=== PATIENT | female | born 1980 | race Caucasian/White ===

== ENCOUNTER → 2018-01-29 | Outpatient (CLI) | payer OTHER ==
[~2018-01-29] MED LIST: CHOL500050 PO; CITA20TA9 PO; GABA100C PO; HYDR-3241 PO; HYDR-3653 PO; MELO7.5T31 PO; SERT50TA5 PO
[2018-01-29 13:53] LABS: BASOPHILS # (AUTO) 0.06 x10^3/uL (0-0.1); BASOPHILS % (AUTO) 1 % (0-1); EOSINOPHILS # (AUTO) 0.07 x10^3/uL (0-0.4); EOSINOPHILS % (AUTO) 1 % (1-7); LYMPHOCYTES # (AUTO) 1.65 x10^3/uL (1-3.4); LYMPHOCYTES % (AUTO) 25 % (22-44); MD NO; MEAN CORPUSCULAR HEMOGLOBIN 29.2 pg (27.0-34.8); MEAN CORPUSCULAR VOLUME 88.5 fL (80-100); MEAN PLATELET VOLUME 9.6 fL (7.4-10.4); MONOCYTES # (AUTO) 0.69 x10^3/uL (0.2-0.8); MONOCYTES % (AUTO) 11 % (2-9); NEUTROPHILS # (AUTO) 4.12 x10^3/uL (1.8-6.8); NEUTROPHILS % (AUTO) 63 % (42-75); PLATELET COUNT 286 x10^3/uL (130-400); RED BLOOD COUNT 4.78 x10^6/uL (3.82-5.3)
[2018-01-29 14:05] LABS: ALBUMIN 3.7 g/dL (3.4-5.0); ANION GAP 8 mmol/L (5-15); CALCIUM 8.6 mg/dL (8.5-10.1); CHLORIDE 107 mmol/L (98-107)
[2018-01-29 14:12] LABS: ALANINE AMINOTRANSFERASE 19 U/L (12-78); ALKALINE PHOSPHATASE 61 U/L (45-117); BILIRUBIN,TOTAL 0.3 mg/dL (0.2-1.0); CREATININE 0.77 mg/dL (0.55-1.02); TOTAL PROTEIN 7.1 g/dL (6.4-8.2)
[2018-01-29 14:22] LABS: MICROSCOPIC NOT IND
== END | disposition home or self-care (01) ==
LOC: STAR 12:14
PROVIDERS: ATTEND Obstetrics & Gynecology Gynecology
DX: Z01.818 Encounter for other preprocedural examination (principal); R10.2 Pelvic and perineal pain
CPT/HCPCS: 36415; 80053; 81003; 84703; 85025

== ENCOUNTER 2018-02-06 05:48 | Day surgery (SDC) | payer OTHER ==
[~2018-02-06] VITALS: Ht 170.2 cm; Wt 70.0 kg
[2018-02-06] MEDS ORDERED: LACTATED RINGERS 1,000 ML IV SCH (06:19)
[2018-02-06 06:20] VITALS: BP 131/87
[2018-02-06] MEDS ORDERED: FLUORESCEIN SODIUM 500 MG/5 ML ONE (06:36)
[2018-02-06] MEDS ORDERED: METHYLENE BLUE 10 MG/ML 10ML ONE (06:36)
[2018-02-06] MEDS ORDERED: LIDOCAINE 1%-EPI 1:100K, 30ML ONE (06:36)
[2018-02-06] MEDS ORDERED: SILVER NITRATE STICK TP ONE (06:52)
[2018-02-06] MEDS ORDERED: MIDAZOLAM 1 MG/ML, 2ML ONE (07:10)
[2018-02-06] MEDS ORDERED: FENTANYL PF 250 MCG/5ML ONE (07:10)
[2018-02-06] MEDS ORDERED: PROPOFOL 10 MG/ML, 20ML ONE (07:24)
[2018-02-06] MEDS ORDERED: DEXAMETHASONE 4 MG/ML, 1ML ONE (07:24)
[2018-02-06] MEDS ORDERED: ONDANSETRON 2MG/ML, 2ML ONE (07:24)
[2018-02-06] MEDS ORDERED: ROCURONIUM 10 MG/ML,10ML ONE (07:24)
[2018-02-06] MEDS ORDERED: SUCCINYLCHOLINE 20 MG/ML, 10ML ONE (07:24)
[2018-02-06] MEDS ORDERED: EPHEDRINE 50 MG/ML, 1ML ONE (07:24)
[2018-02-06] MEDS ORDERED: KETOROLAC 30 MG/1 ML ONE (07:24)
[2018-02-06] MEDS ORDERED: GLYCOPYRROLATE 0.2MG/1ML, 5ML ONE (07:24)
[2018-02-06] MEDS ORDERED: OXYcodone 5 MG/5 ML ORAL.SOL UDC PO PRN (08:00)
[2018-02-06] MEDS ORDERED: hydrALAzine 20 MG/ML, 1ML IV PRN (08:00)
[2018-02-06] MEDS ORDERED: KETOROLAC 30 MG/1 ML IV PRN (08:00)
[2018-02-06] MEDS ORDERED: PROMETHAZINE 25 MG/ML, 1ML IV PRN (08:00)
[2018-02-06] MEDS ORDERED: ALBUTEROL SULFATE 2.5 MG/3 ML NPPB PRN (08:00)
[2018-02-06] MEDS ORDERED: ONDANSETRON 2MG/ML, 2ML IVPush PRN (08:00)
[2018-02-06] MEDS ORDERED: HYDROmorphone 1 MG/ML, 1ML IV PRN (08:00)
[2018-02-06] MEDS ORDERED: METOCLOPRAMIDE 5 MG/ML, 2ML IV PRN (08:00)
[2018-02-06] MEDS ORDERED: LABETALOL 5MG/ML, 20ML IV PRN (08:00)
[2018-02-06] MEDS ORDERED: MEPERIDINE/PF 50 MG/ML ONE (08:15)
[2018-02-06] MEDS: MEPERIDINE/PF 25MG/0.5ML IVPush PRN ×2 (08:16→08:30)
[2018-02-06] MEDS ORDERED: ACETAMINOPHEN 650 MG/20.3 ML UDC ONE (08:26)
[2018-02-06] MEDS ORDERED: OXYcodone 5 MG/5 ML ORAL.SOL UDC ONE (08:27)
[2018-02-06] MEDS ORDERED: FENTANYL PF 100 MCG/2ML ONE (08:27)
[2018-02-06] MEDS: FENTANYL PF 100 MCG/2ML IV PRN ×3 (08:38→08:56)
[2018-02-06] MEDS ORDERED: ACETAMINOPHEN 650 MG/20.3 ML UDC PO PRN ×2 (09:00)
== END 2018-02-06 11:25 | disposition home or self-care (01) ==
LOC: OUT 05:48
PROVIDERS: ATTEND Obstetrics & Gynecology Gynecology
DX: D28.2 Benign neoplasm of uterine tubes and ligaments (principal); N94.10 Unspecified dyspareunia; N73.1 Chronic parametritis and pelvic cellulitis; Z88.1 Allergy status to other antibiotic agents; Z98.890 Other specified postprocedural states
CPT/HCPCS: 58661; 88112; 88302; 88305; J0330; J1100; J1885; J2175; J2250; J2405; J2704; J3010; J3490; J7120; Q9968